=== PATIENT | male | born 1965 | race Caucasian/White ===

== ENCOUNTER 2017-08-18 05:15 | Inpatient (IN) | payer OTHER ==
[2017-08-13 14:17] VITALS: BMI 21.0
--- NOTE | 2017-08-13 15:03 | PAT Medication Instructions ---
Service Date August 13, 2017. Current Home Medication List Ibuprofen (Motrin), 400 MG PO UD Medication Instructions For Your Scheduled Surgery - Check with your surgeon for instructions for: Ibuprofen (Motrin), 400 MG PO UD If you have any questions please call us at [phone] or [phone] or [phone]
--- NOTE | 2017-08-13 15:32 | DIAGNOSTIC IMAGING REPORT ---
CHEST 2 VIEWS ROUTINE CLINICAL HISTORY: Preoperative chest COMPARISON STUDY: No previous studies for comparison. FINDINGS: The cardiac and mediastinal contours are normal. There is no evidence of focal pulmonary consolidation. There is no evidence of failure. No pleural effusions are visualized.[ There is an old right clavicular fracture. Degenerative changes are present within the dorsal spine. IMPRESSION: No active disease in the chest. Electronically signed by: Tahir Corrigan M.D. 08/13/2017 3:30 PM Dictated Date/Time: 08/13/2017 3:30 PM
[2017-08-13 15:34] LABS: BASO % 0.2 %; BASO ABS # 0.01 K/uL (0-0.2); EOS % 1.2 %; EOS ABS # 0.07 K/uL (0-0.5); HEMATOCRIT 45.1 % (42-52); HEMOGLOBIN 15.3 g/dL (14.0-18.0); IG# 0.02 K/uL (0.00-0.02); LYMPH % 22.7 %; LYMPH ABS # 1.36 K/uL (1.2-3.4); MEAN CELL VOLUME 92.2 fL (80-100); MEAN CORPUSCULAR HEMOGLOBIN 31.3 pg (25-34); MEAN CORPUSCULAR HGB CONC 33.9 g/dl (32-36); MEAN PLATELET VOLUME 11.2 fL (7.4-10.4); MONO % 8.8 %; MONO ABS # 0.53 K/uL (0.11-0.59); NEUT % 66.8 %; PLATELET COUNT 201 K/uL (130-400); RED CELL DISTRIBUTION WIDTH CV 14.4 % (11.5-14.5); RED CELL DISTRIBUTION WIDTH SD 48.9 fL (36.4-46.3); WHITE BLOOD COUNT 5.99 K/uL (4.8-10.8)
[2017-08-13 15:41] LABS: PTT PATIENT 25.4 SECONDS (21.0-31.0)
[2017-08-13 15:46] LABS: CALCIUM 8.6 mg/dl (8.5-10.1); CREATININE 0.93 mg/dl (0.60-1.40); POTASSIUM 3.7 mmol/L (3.5-5.1)
--- NOTE | 2017-08-17 21:19 | HISTORY & PHYSICAL EXAMINATION ---
DATE OF ADMISSION: 08/18/2017 CHIEF COMPLAINT: Low back pain, lower extremity difficulty, paresthesias, numbness and tingling in bilateral legs, left side dominant. HISTORY OF PRESENT ILLNESS: This 52 years of age with muscle pain for multiple years, worsening over the last 12 months, unbearable, minimal function. He has failed assortment of conservative difficulty. PAST MEDICAL HISTORY: Rheumatoid arthritis, but no history of diabetes, heart disease, carcinoma, liver disease, or hepatitis. PAST SURGICAL HISTORY: Includes wound repair of his chest. ALLERGIES: Negative. CURRENT MEDICATIONS: [id number] medications for pain. SOCIAL HISTORY: Negative for heart disease, diabetes. Smokes 1 pack per day for 30 years. Moderately active. Two drinks of alcohol daily. Two grown children. REVIEW OF SYSTEMS: Denies any fever, sweats, or chills. Denies any weight loss or gain. Denies any chest pain, palpitations, or angina. Denies wheezing or coughing. Denies any diabetes. No easy bruisability. No immune deficiency. Denies any urgency, frequency or bowel and bladder incontinence. Major positive review is his lower extremity difficulties. PHYSICAL EXAMINATION: GENERAL: He is 5 feet 8 inches, he is 150 pounds. He is in moderate distress. He is appropriately dressed. VITAL SIGNS: Blood pressure 130/80, pulse 80, respiratory rate 16. HEENT: Essentially normal. CARDIAC: Normal S1 and S2, no S3. No murmurs. No rubs. LUNGS: Clear to auscultation. ABDOMEN: Soft, nontender. No masses, organomegaly, or referred pain. NEUROLOGIC: Neurosensory examination demonstrates adequate motor strength. Slight loss of sensation, decreased knee jerk on the left. Decreased quadriceps on the left. Great toe is also weak on the left hand side. He has no upper motor neuron pathology. Images demonstrate degenerative changes and stenosis L4-L5 and L5-S1. PLAN: At this point in time we have offered him surgery for his difficulty. I have explained to him, I am not aggressive in my approach to spine related difficulties. We have offered him a laminectomy and fusion L4-L5 and L5-S1 under general anesthetic. He is well informed and asked intelligent questions. All questions answered.
[2017-08-18] VITALS (7 sets, daily range): BP systolic 101–150; BP diastolic 58–90; PULSE 62–88; TEMP 36.4–37.1; O2SAT 92–100; Ht 175.3 cm; Wt 66.0 kg
[~2017-08-18] VITALS: Ht 175.3 cm; Wt 66.0 kg
[~2017-08-18 05:15] MED LIST: IBUP-1459 PO
[2017-08-18] MEDS ORDERED: CEFAZOLIN 2000MG IV PUSH 15 ML IV SCH (06:00)
[2017-08-18] MEDS ORDERED: NSS 1000ML IV SCH (06:00)
[2017-08-18] MEDS ORDERED: LACTATED RINGER'S 1000ML 1,000 ML IV SCH (06:00)
[2017-08-18] MEDS ORDERED: ACETAMINOPHEN 1000 MG/100 ML IV IV SCH (06:00)
[2017-08-18] MEDS ORDERED: ROCURONIUM BROMIDE 10 MG/ML 5 ML VIAL ONE ×2 (06:35→09:19)
[2017-08-18] MEDS ORDERED: ONDANSETRON INJ 2 MG/ML 2 ML VIAL ONE ×2 (06:35→10:16)
[2017-08-18] MEDS ORDERED: PROPOFOL IV EMULSION 10 MG/ML 20 ML VIAL ONE (06:35)
[2017-08-18] MEDS ORDERED: LIDOCAINE HCL 2% 2 ML VIAL (20MG/ML) ONE (06:35)
[2017-08-18] MEDS ORDERED: MIDAZOLAM HCL 1 MG/ML 2ML VIAL ONE (06:35)
[2017-08-18] MEDS ORDERED: DEXAMETHASONE SOD INJ 4 MG/ML VIAL ONE (06:35)
[2017-08-18] MEDS ORDERED: FENTANYL CITRATE INJ 50 MCG/1 ML 2 ML VIAL ONE ×3 (06:35→09:59)
[2017-08-18] MEDS ORDERED: THROMBIN FOR SOLN 20000 UNIT KIT ONE (06:51)
[2017-08-18] MEDS ORDERED: GELATIN SPONGE SZ 100 ONE ×2 (06:51→08:44)
[2017-08-18] MEDS ORDERED: BACITRACIN 50000 UNIT VIAL ONE (06:51)
[2017-08-18] MEDS ORDERED: VANCOMYCIN HCL 1000MG/20ML VIAL ONE (06:51)
[2017-08-18] MEDS ORDERED: BUPIVACAINE 0.5 % 5 MG/1 ML MPF 30ML VIAL ONE (06:52)
[2017-08-18] MEDS ORDERED: EpINEphrine INJ 1MG/ML AMP 1 MG/ML AMP ONE (06:52)
--- NOTE | 2017-08-18 07:20 | History & Physical Bridge Note ---
H&P Re-Evaluation Bridge Note: I have examined the patient, reviewed the History & Physical and in the interval since the performance of the History & Physical I have noted the following changes of clinical significance: No changes noted
[2017-08-18] MEDS ORDERED: HYDROmorphone INJ 2 MG/ML SYR/VIAL ONE (07:50)
[2017-08-18] MEDS ORDERED: ONDANSETRON INJ 2 MG/ML 2 ML VIAL IV PRN ×2 (08:30→10:45)
[2017-08-18] MEDS ORDERED: LABETALOL HCL IV 5 MG/ML 20ML IV PRN (08:30)
[2017-08-18] MEDS ORDERED: ATROPINE SULFATE 0.1 MG/ML 5ML SYR IV PRN (08:30)
[2017-08-18] MEDS ORDERED: NEOSTIGMINE METHYLSULFATE 5 MG/5 ML SYR ONE (09:17)
[2017-08-18] MEDS ORDERED: GLYCOPYRROLATE INJ 0.2 MG/ML VIAL ONE ×2 (09:17→10:14)
[2017-08-18] MEDS ORDERED: EpHEDrine SULFATE INJ 50 MG/ML AMP ONE (09:17)
[2017-08-18] MEDS ORDERED: FLOSEAL HEMOSTATIC MATRIX 10ML TOP ONE (10:21)
--- NOTE | 2017-08-18 10:23 | DIAGNOSTIC IMAGING REPORT ---
SPINE ONE VIEW, ANY LEVEL CLINICAL HISTORY: L4-S1 laminectomy and fusion. COMPARISON STUDY: Lumbar spine MRI December 31, 2016 and lumbar spine radiograph July 30, 2017. Fluoroscopy time: 10 seconds. FINDINGS: Single lateral fluoroscopic image demonstrates an L4-L5 discectomy with a posterior decompression with placement of bilateral pedicle screws at the L4, L5 and S1 levels. IMPRESSION: Fluoroscopic image demonstrating L4-L5 discectomy and L4-S1 bilateral pedicle screw fusion. Electronically signed by: Benjamin Mullins M.D. 08/18/2017 10:22 AM Dictated Date/Time: 08/18/2017 10:21 AM
--- NOTE | 2017-08-18 10:40 | [facility] Post Operative Brief Note ---
Immediate Operative Summary Operative Date August 18, 2017. Pre-Operative Diagnosis Degenerative changes and stenosis L4-L5 and L5-S1. Post-Operative Diagnosis Degenerative changes and stenosis L4-L5 and L5-S1. Procedure(s) Performed L4-S1 Laminectomy and Fusion with Interbody Cage Surgeon Dr. Paniagua Director Pharmacology Surgeon(s) Vinay Marshall PA-C Estimated Blood Loss 250 cc Findings Consistent with Post-Op Diagnosis Specimens none per surgeon Anesthesia Type General
[2017-08-18] MEDS ORDERED: MAGNESIUM HYDROXIDE SUSP 30 ML UDC PO PRN (10:45)
[2017-08-18] MEDS ORDERED: SODIUM CHLORIDE 0.9% 1000ML 1,000 ML IV SCH ×2 (10:45→13:00)
[2017-08-18] MEDS ORDERED: LORAZEPAM 1 MG TAB PO PRN (10:45)
[2017-08-18] MEDS ORDERED: CEFAZOLIN IV 1,000 MG in DEXTROSE 5% 50ML 50 ML IV SCH (10:45)
[2017-08-18] MEDS ORDERED: ACETAMINOPHEN 325 MG TAB PO PRN (10:45)
[2017-08-18] MEDS ORDERED: NALOXONE HCL 0.4 MG/1 ML VIAL/CARP IV PRN (10:45)
[2017-08-18] MEDS ORDERED: HYDROmorphone HCL 0.5MG/ML 50 ML CASSETTE IV PRN (10:45)
[2017-08-18] MEDS ORDERED: PROMETHAZINE HCL INJ 12.5 MG in SODIUM CHLORIDE 0.9% 50ML 50 ML IV PRN (10:45)
[2017-08-18] MEDS ORDERED: METOCLOPRAMIDE HCL INJ 5 MG/ML 2 ML VIAL IV PRN (10:45)
[2017-08-18] MEDS ORDERED: LORAZEPAM INJ 1 MG in SYRINGE 0.5 ML IV PRN (10:45)
[2017-08-18] MEDS: HYDROmorphone INJ 2 MG/ML SYR/VIAL IV PRN ×8 (10:50→11:28)
[2017-08-18] MEDS: HYDROmorphone HCL 0.5MG/ML 50 ML CASSETTE IV PRN ×4 (11:31→23:02)
--- NOTE | 2017-08-18 11:39 | Anesthesiology Progress Note ---
Anesthesia Post Op Note Date & Time August 18, 2017 at 11:39 Vital Signs Vital Signs Past 12 Hours Date Time Temp Pulse Resp B/P (MAP) Pulse Ox O2 Delivery O2 Flow Rate FiO2 08/18/17 11:35 76 14 109/75 95 Nasal Cannula 4 08/18/17 11:25 82 14 123/78 95 Nasal Cannula 4 08/18/17 11:15 80 14 124/79 100 Nasal Cannula 4 08/18/17 11:05 87 14 132/86 99 Oxymask 10 08/18/17 10:55 85 14 113/77 99 Oxymask 10 08/18/17 10:46 36.4 96 14 146/98 99 Oxymask 10 08/18/17 05:46 36.5 88 20 150/90 98 Room Air Notes Mental Status: alert / awake / arousable, participated in evaluation Pt Amnestic to Procedure: Yes Nausea / Vomiting: adequately controlled Pain: adequately controlled Airway Patency, RR, SpO2: stable & adequate BP & HR: stable & adequate Hydration State: stable & adequate Anesthetic Complications: no major complications apparent
[2017-08-18 11:44] LABS: HEMATOCRIT 39.8 % (42-52); HEMOGLOBIN 13.1 g/dL (14.0-18.0)
--- NOTE | 2017-08-18 12:02 | OPERATIVE REPORT ---
DATE OF OPERATION: 08/18/2017 PREOPERATIVE DIAGNOSES: Stenosis and instability. Severe arthritis, lumbar spine L4, L5, and S1. POSTOPERATIVE DIAGNOSES: Stenosis and instability. Severe arthritis, lumbar spine L4, L5, and S1. PROCEDURES: Include: 1. Decompression L4, L5, S1 lumbar spine and sacral spine, foraminotomies, partial facetectomies. 2. Pedicle screw instrumentation, L4, L5, and S1. 3. Posterior lumbar interbody fusion L4-L5 and L5-S1. 4. Posterior lateral fusion L4, L5, and S1. SURGEON: Siva Kathleen DO STOCKKEEPER: Vinay Marshall PA-C. COMPLICATIONS: Zero. BLOOD LOSS: 250. ANESTHESIA: General. IMPLANTS USED: Asteres. One Hemovac drain used at the end of the procedure. Kam catheter administered prior to the start. DESCRIPTION OF PROCEDURE: The patient was taken to the operating room, a general intubated anesthetic provided to the patient. Kam catheter administered. The patient turned prone on the Carl[place] table. Scrubbed, prepped, draped sterile. We took a formal timeout, commenced with surgery. I made a skin incision and fascia incision, putting a deep self-retaining retractor. We could visualize all the lamina, facet joints out of the transverse processes of L4, L5, and S1. We decompressed the neural elements, first stripping the soft tissue, then taking bone. We used the lamina, facet joints as morcellized bone graft at the end of the procedure. We decompressed each and every nerve root. I was pleased with the decompression of the nerves. There was no obstruction. We then instrumented the spine, safely getting pedicle screws in L5, L4, S1 on the left and then L5, L4, S1 on the right. We also were able to get interbody devices into the disc interspace at L4-L5 and L5-S1. They are also by the Asteres. A discectomy was provided these areas at L4-L5, L5-S1. We then put an interbody device measuring 7 mm tall, 22 mm deep, and 9 mm across. These were placed into the vacated discectomy sites. We irrigated it thoroughly. We re-connected it with a longitudinal regan from the Asteres and different caps were used. We restored lordosis and completely decompressed the spinal canal. We tightened down the caps, then did a posterior lateral fusion combination allograft and autograft out of the L-spine over the transverse processes. This was mixed with vancomycin powder. We then put some vancomycin powder over the dural structures, closed fascia to fascia over Hemovac drain with 1 Vicryl suture, 2-0 in subcuticular layer, and 3-0 nylon on the skin surface. Sterile dressings applied. The patient returned to PACU improved, stable. There were no apparent interoperative complications. I attest to the content of the Intraoperative Record and any orders documented therein. Any exception s are noted below.
[2017-08-18] MEDS: DEXAMETHASONE INJ 10 MG in SYRINGE 0 ML IV SCH ×2 (13:52→21:32)
[2017-08-18] MEDS: KETOROLAC TROMETHAMINE 30 MG/ML VIAL IV SCH ×2 (13:52→20:08)
[2017-08-18] MEDS ORDERED: OXYC-106 PO (15:35)
[2017-08-18] MEDS: CEFAZOLIN IV 1,000 MG in SYRINGE 0 ML IV SCH ×2 (16:06→23:40)
[2017-08-19] MEDS ORDERED: NURSING VERBAL MED ORDER ONE ×4 (00:15→13:30)
[2017-08-19] MEDS: KETOROLAC TROMETHAMINE 30 MG/ML VIAL IV SCH ×3 (01:30→13:42)
[2017-08-19 03:45] VITALS: BP 145/83; PULSE 115; TEMP 37.2; O2SAT 98
[2017-08-19 06:00] VITALS: PULSE 76
[2017-08-19] MEDS ORDERED: BISACODYL 5 MG TABEC PO PRN (06:00)
[2017-08-19] MEDS ORDERED: DC PCA ONE (06:00)
[2017-08-19] MEDS ORDERED: BISACODYL 10 MG SUPP PR PRN (06:00)
[2017-08-19] MEDS ORDERED: HYDROmorphone INJ 0.5 MG/0.5 ML SYR IV PRN (06:00)
[2017-08-19] MEDS ORDERED: OXYCODONE/ACETAMINOPHEN 5-325 TAB PO PRN (06:00)
[2017-08-19] MEDS: DEXAMETHASONE INJ 10 MG in SYRINGE 0 ML IV SCH ×3 (06:04→21:44)
[2017-08-19] MEDS ORDERED: SODIUM CHLOR 0.45% + 20MEQ KCL 1,000 ML IV SCH (06:30)
[2017-08-19 07:11] VITALS: BP 144/74; PULSE 79; TEMP 37; O2SAT 99
[2017-08-19] MEDS: CEFAZOLIN IV 1,000 MG in SYRINGE 0 ML IV SCH (07:32)
--- NOTE | 2017-08-19 07:33 | ORTHOPEDICS PROGRESS NOTE ---
DATE: 08/19/2017 SUBJECTIVE: He is alert and oriented this morning. Some leg pain, some paresthesias, also slightly anxious, but alert, oriented, and conversant. A little bit of restless leg-type syndrome in his bed. OBJECTIVE: Vital signs stable. No chest pain. ASSESSMENT: Status post lumbar spine decompression and fusion L4 to the sacrum, done yesterday. Also, I think he does have some anxiety and stress as well. PLAN: Includes rehydration, restarting his IV plus place him on some Ativan every 6 hours. Hopefully, home tomorrow.
[2017-08-19] MEDS: OXYCODONE/ACETAMINOPHEN 5-325 TAB PO PRN ×3 (07:36→21:44)
[2017-08-19] MEDS ORDERED: HYDROmorphone INJ 2 MG/ML SYR/VIAL IV PRN (08:00)
--- NOTE | 2017-08-19 08:00 | Anesthesiology Progress Note ---
Anesthesia Post Op Note Date & Time August 19, 2017 at 07:59 Vital Signs Pain Intensity: 9.0 Vital Signs Past 12 Hours Date Time Temp Pulse Resp B/P (MAP) Pulse Ox O2 Delivery O2 Flow Rate FiO2 08/19/17 07:11 37.0 79 16 144/74 (97) 99 Room Air 08/19/17 06:00 76 08/19/17 03:45 37.2 115 18 145/83 (103) 98 Room Air 08/18/17 23:35 37.1 84 16 130/76 (94) 100 Nasal Cannula 2.0 08/18/17 23:30 Room Air Notes Mental Status: alert / awake / arousable, participated in evaluation Pt Amnestic to Procedure: Yes Nausea / Vomiting: adequately controlled Pain: adequately controlled Airway Patency, RR, SpO2: stable & adequate BP & HR: stable & adequate Hydration State: stable & adequate Anesthetic Complications: no major complications apparent
[2017-08-19] MEDS: POLYETHYLENE (MIRALAX) 17 GM PACK PO SCH (08:51)
[2017-08-19 11:09] VITALS: BP 160/84; PULSE 97; TEMP 37.2; O2SAT 100
[2017-08-19] MEDS: LORAZEPAM 1 MG TAB PO SCH ×3 (11:49→23:31)
[2017-08-19] MEDS ORDERED: ALUMINUM/MAGNESIUM SUSP 30 ML UDC PO PRN (12:45)
[2017-08-19 15:02] VITALS: BP 151/79; PULSE 97; TEMP 36.5; O2SAT 98
[2017-08-19 23:13] VITALS: BP 127/82; PULSE 96; TEMP 37.5; O2SAT 98
[2017-08-20] MEDS: LORAZEPAM 1 MG TAB PO SCH ×2 (06:04→11:39)
[2017-08-20] MEDS: OXYCODONE/ACETAMINOPHEN 5-325 TAB PO PRN ×2 (06:04→11:39)
[2017-08-20 07:40] VITALS: BP 110/65; PULSE 85; TEMP 36.8; O2SAT 97
[2017-08-20] MEDS: POLYETHYLENE (MIRALAX) 17 GM PACK PO SCH (08:55)
--- NOTE | 2017-08-20 08:59 | Discharge Instructions ---
Discharge Instructions Date of Service August 20, 2017. Admission Reason for Admission: Lumbar Disc Herniation Discharge Discharge Diagnosis / Problem: same Discharge Goals Goal(s): Improve function Activity Recommendations Activity Limitations: as noted below Lifting Limitations: no more than 5 pounds, until after follow-up appointment May Resume Sexual Activity: after follow-up appointment Shower/Bathe: keep incision dry home, rest ,recover . Instructions / Follow-Up Instructions / Follow-Up MEDICATIONS: Please take your prescriptions as instructed at your pre-op appointment. SPECIAL CARE: The following information is intended to answer some of the common questions and concerns regarding your surgery. Each patient is an individual and receives individual counselling throughout the course of treatment, from diagnosis to surgery all the way through recovery. What follows is not an exhaustive list, but should be a useful guide to some of the common questions and concerns patients have regarding their surgeries. These are not provided to keep you from calling us; rather, they give you something accurate and concrete to reference as you recover from your procedure. If you need us, we are available to you. As always, if you are not sure about something, call us at [phone]. MEDICAL EMERGENCIES: For these conditions, call 911 or go to your local hospital-based Emergency Department - not [facility] or equivalent. * Paralysis * Severe chest pain or difficulty breathing * Swelling or redness of either leg Spine procedures can be rather complex and though complications are rare, they do occur. In such cases, effective advice regarding emergency situations cannot always be addressed over the telephone. You may be referred to the emergency department for more effective management of your problem. Activity Limitations: It is important to give your body time to heal, so please limit your activities : * In general, don't do anything that moves your spine too much. You should avoid contact sports, twisting or heavy lifting while you recover. * 5-10 pounds is all you should attempt to lift. * You should not plan on driving for approximately 3 weeks and you should avoid traveling more than 30-45 minutes at a time. Longer trips should be broken down with walking breaks spaced appropriately. * Physical therapy is not usually required. * Walking and good posture practices will help you recover and regain your function. * Avoid straining or sudden changes in position. * In general, the goal is to take it easy and recover. Don't cause any new problems. Just relax. Showers: * Do not take a bath, use a Jacuzzi or hot tub or otherwise submerge your incision. * It is usually safe to take a shower 4-5 days after your surgery. * Your incision does not require any special creams or ointments. * Simply clean it with soap and water, dry and re-dress with a clean bandage afterwards. Incision: * Keep incision clean, dry and protected until your first follow-up appointment. * Some amount of drainage and redness is normal. Any drainage should be fairly clear and not have a foul odor. * If you feel anything is wrong or you have excessive drainage, please call us. * Your stitches and liza will be removed 10-14 days after your surgery. At the time of your first post-op visit. * Neck surgeries are typically closed with a suture underneath the skin. The steri-strips over the incision should be maintained until we see you in the office. Bracing: * You may be provided with a back or neck brace to encourage good posture and prevent injury. It will remind you not to do too much as you heal and will alert others to the fact that you have had a surgery. * Back braces may be removed for showers and when you are resting at home. They must be worn when you are walking around for any period of time or for travel. * For neck surgery, you will likely be provided with two cervical collars. The soft collar ([place] or foam rubber) is worn most commonly throughout the day and while sleeping. The plastic collar (provided at the hospital) is for showering/bathing. * Except while eating, collars should remain in place. More specifically, bracing is provided for a purpose and should be worn. * Please obtain your brace or collars prior to your operation and bring them to the hospital with you on the day of surgery. * You should also bring your collars to your post-op appointment with Dr. Paniagua. You should always take good care of your body and practice healthy habits, especially following surgery. You should: * Follow your doctor's treatment plan * Sit and stand properly with good posture (ears over shoulders, shoulders over hips) Don't slouch * Learn to lift correctly * Exercise regularly (low-impact aerobic exercise is especially good, but check with your doctor first) * Generally, be up and walking for 5-10 minutes at a time at least 3-4 times per day from the day you get home * Increasing walking to tolerance until you can walk for 20-30 minutes at a time * Attain and maintain a healthy body weight * Eat healthy foods ( a well-balanced, low-fat diet rich in fruits and vegetables) and get enough calcium * Avoid excessive use of alcohol When to call our office - If you notice any of the following: * Increased pain not relieve by pain medicine * Fevers greater then 100 degrees F, chills or flu symptoms * Increased redness around incision * Drainage from the incision that is not clear * Any foul smelling drainage * Swelling or fluid collection beneath the skin Miscellaneous: * In the hospital, you may be given a walker or cane for support while walking. These are temporary needs and are intended to prevent injuries due to falls. You may discontinue them when you feel strong and steady enough on your feet. * Sleep in a comfortable position. We find that many patients find a lounge chair or recliner with several pillows to be beneficial in the early post-operative period. * The support stockings should be used for 7-10 days and may be discontinued when you are back to walking more and conducting usual household activities. No problem is insignificant. We are here to help you and get you well. Contact us at [phone]. Definitions: Foraminotomy: If part of the disc or a bone spur (osteophyte) is pressing on a nerve as it leaves the vertebra (through an exit called the foramen), a foraminotomy may be done. Otomy means "to make an opening." A foraminotomy is making the opening of the foramen larger, so the nerve can exit without being compressed. Laminotomy: Similar to the foraminotomy, a laminotomy makes a larger opening, this time in your bony plate protecting your spinal canal and spinal cord (the lamina). The lamina may be pressing on your nerve, so the surgeon may make more room for the nerves using a laminotomy. Laminectomy: Sometimes, a laminotomy is not sufficient. The surgeon may need to remove all or part of the lamina. This procedure is called a laminectomy. This can often be done at many levels without any harmful effects. Current Hospital Diet Patient's current hospital diet: Regular Diet Discharge Diet Recommended Diet: Regular Diet Procedures Procedures Performed: L4-S1 Laminectomy and Fusion with Interbody Cage Pending Studies Studies pending at discharge: no Medical Emergencies . Who to Call and When: Medical Emergencies: If at any time you feel your situation is an emergency, please call 911 immediately. . Non-Emergent Contact Non-Emergency issues call your: Primary Care Provider . "Provider Documentation" section prepared by Hever Paniagua. .
--- NOTE | 2017-08-20 09:14 | DISCHARGE SUMMARY ---
DATE OF DISCHARGE: 08/20/17 SUBJECTIVE: He is alert, oriented this morning. Minimal complaints of pain. No chest pain, shortness of breath, no confusion. OBJECTIVE: Vital signs stable. Moves all extremities. ASSESSMENT: Status post lumbar spine reconstructive surgery, doing well 48 hours post-surgery. PLAN: Includes discharge home later today. He has prescriptions, a walker. We put an in order in for home health agency. Instructions were given to him in the office and here at the hospital.
[2017-08-20 10:50] VITALS: BP 110/65; PULSE 85; TEMP 36.8; O2SAT 97
[2017-08-20 12:45] VITALS: BP 127/71; PULSE 74; TEMP 36.5; O2SAT 100
== END 2017-08-20 14:27 | disposition home health service (06) | DRG 455 ==
LOC: C.ACU 05:15 → C.3E 10:50 → ENRESERV 11:21
PROVIDERS: ADMIT Orthopaedic Surgery Orthopaedic Surgery of the Spine; ATTEND Orthopaedic Surgery Orthopaedic Surgery of the Spine
PROC: 0SG00AJ Fusion of Lumbar Vertebral Joint with Interbody Fusion Device, Posterior Approach, Anterior Column, Open Approach (ICD-10-PCS; principal; 2017-08-18 07:30)
PROC: 0SG30AJ Fusion of Lumbosacral Joint with Interbody Fusion Device, Posterior Approach, Anterior Column, Open Approach (ICD-10-PCS; principal; 2017-08-18 07:30)
PROC: 0ST20ZZ Resection of Lumbar Vertebral Disc, Open Approach (ICD-10-PCS; principal; 2017-08-18 07:30)
PROC: 0SG0071 Fusion of Lumbar Vertebral Joint with Autologous Tissue Substitute, Posterior Approach, Posterior Column, Open Approach (ICD-10-PCS; principal; 2017-08-18 07:30)
PROC: 0SG3071 Fusion of Lumbosacral Joint with Autologous Tissue Substitute, Posterior Approach, Posterior Column, Open Approach (ICD-10-PCS; principal; 2017-08-18 07:30)
PROC: 0ST40ZZ Resection of Lumbosacral Disc, Open Approach (ICD-10-PCS; principal; 2017-08-18 07:30)
DX: M48.061 Spinal stenosis, lumbar region without neurogenic claudication (principal); M48.07 Spinal stenosis, lumbosacral region; M53.2X6 Spinal instabilities, lumbar region; M53.2X7 Spinal instabilities, lumbosacral region; M46.96 Unspecified inflammatory spondylopathy, lumbar region; M46.97 Unspecified inflammatory spondylopathy, lumbosacral region; F41.9 Anxiety disorder, unspecified; F17.200 Nicotine dependence, unspecified, uncomplicated